=== PATIENT | female | born 1965 | race Caucasian/White ===

== ENCOUNTER → 2018-12-25 | Outpatient (CLI) | payer OTHER ==
[~2018-12-25] MED LIST: B CO1TAB14 PO; MULT-658 PO; Vitamin c PO; garlic PO; magnesium PO; potassium PO
[2018-12-25 15:16] LABS: BASOPHILS # (AUTO) 0.17 x10^3/uL (0-0.1); BASOPHILS % (AUTO) 2 % (0-1); EOSINOPHILS # (AUTO) 0.15 x10^3/uL (0-0.4); EOSINOPHILS % (AUTO) 1 % (1-7); LYMPHOCYTES # (AUTO) 3.43 x10^3/uL (1-3.4); LYMPHOCYTES % (AUTO) 30 % (22-44); MD NO; MEAN CORPUSCULAR HEMOGLOBIN 32.7 pg (27.0-34.8); MEAN CORPUSCULAR HGB CONC 33.5 g/dL (32.4-35.8); MEAN CORPUSCULAR VOLUME 97.7 fL (80-100); MEAN PLATELET VOLUME 8.3 fL (7.4-10.4); MONOCYTES # (AUTO) 0.69 x10^3/uL (0.2-0.8); MONOCYTES % (AUTO) 6 % (2-9); NEUTROPHILS % (AUTO) 61 % (42-75); PLATELET COUNT 326 x10^3/uL (130-400); RED BLOOD COUNT 4.71 x10^6/uL (3.82-5.3); RED CELL DISTRIBUTION WIDTH 13.4 % (9.6-15.2)
[2018-12-25 15:23] LABS: ALANINE AMINOTRANSFERASE 23 U/L (12-78); ALBUMIN 4.2 g/dL (3.4-5.0); ANION GAP 7 mmol/L (5-15); CALCIUM 9.3 mg/dL (8.5-10.1); CHLORIDE 105 mmol/L (98-107); CREATININE 0.78 mg/dL (0.55-1.02)
[2018-12-25 15:25] LABS: ALKALINE PHOSPHATASE 87 U/L (45-117); BILIRUBIN,TOTAL 0.6 mg/dL (0.2-1.0); TOTAL PROTEIN 7.8 g/dL (6.4-8.2)
[2018-12-25 15:34] LABS: PROTHROMBIN TIME 10.5 Seconds (9.6-11.5)
== END | disposition home or self-care (01) ==
LOC: STAR 14:13
PROVIDERS: ATTEND Surgery
DX: Z01.818 Encounter for other preprocedural examination (principal); C43.59 Malignant melanoma of other part of trunk
CPT/HCPCS: 36415; 80053; 85025; 85610; 93005

== ENCOUNTER 2019-01-01 05:47 | Day surgery (SDC) | payer OTHER ==
[~2019-01-01] VITALS: Ht 167.6 cm; Wt 78.9 kg
[2019-01-01] MEDS ORDERED: LACTATED RINGERS 1,000 ML IV SCH (06:37)
[2019-01-01] MEDS ORDERED: EPINEPHRINE 1 MG/ML, 1ML ONE (08:07)
[2019-01-01] MEDS ORDERED: BUPIVACAINE/PF 0.5% ONE (08:07)
[2019-01-01] MEDS ORDERED: MIDAZOLAM 1 MG/ML, 2ML ONE (09:21)
[2019-01-01] MEDS ORDERED: FENTANYL PF 250 MCG/5ML ONE (09:21)
[2019-01-01] MEDS ORDERED: SCOPOLAMINE PATCH, 1.5MG PATCH.TD72 TD ONE ×2 (09:46)
[2019-01-01] MEDS ORDERED: KETAMINE 50 MG/ML, 10ML ONE (10:07)
[2019-01-01] MEDS ORDERED: GLYCOPYRROLATE 0.2MG/1ML, 5ML ONE (10:07)
[2019-01-01] MEDS ORDERED: NEOSTIGMINE 1 MG/ML, 10ML ONE (10:07)
[2019-01-01] MEDS ORDERED: PHENYLEPHRINE 10 MG/ML ONE (10:07)
[2019-01-01] MEDS ORDERED: PROPOFOL 10 MG/ML, 20ML ONE ×2 (10:07→10:36)
[2019-01-01] MEDS ORDERED: ROCURONIUM 10 MG/ML,10ML ONE (10:07)
[2019-01-01] MEDS ORDERED: DEXAMETHASONE 4 MG/ML, 1ML ONE ×3 (10:17→10:36)
[2019-01-01] MEDS ORDERED: MEPERIDINE/PF 25MG/0.5ML IVPush PRN (10:30)
[2019-01-01] MEDS ORDERED: ALBUTEROL/IPRATROPIUM 2.5MG/0.5MG, 3 ML NPPB PRN (10:30)
[2019-01-01] MEDS ORDERED: HYDROmorphone 2 MG/ML, 1ML IVPush PRN (10:30)
[2019-01-01] MEDS ORDERED: HALOPERIDOL 5 MG/ML IV PRN (10:30)
[2019-01-01] MEDS ORDERED: LORazepam 2 MG/ML, 1ML IVPush PRN (10:30)
[2019-01-01] MEDS ORDERED: hydrALAzine 20 MG/ML, 1ML IV PRN (10:30)
[2019-01-01] MEDS ORDERED: ACETAMINOPHEN 325 MG TABLET PO PRN (10:30)
[2019-01-01] MEDS ORDERED: PROMETHAZINE 25 MG/ML, 1ML IV PRN (10:30)
[2019-01-01] MEDS ORDERED: FENTANYL PF 100 MCG/2ML IV PRN (10:30)
[2019-01-01] MEDS ORDERED: OXYcodone 5 MG/5 ML ORAL.SOL UDC PO PRN (10:30)
[2019-01-01] MEDS ORDERED: CEFAZOLIN 1,000 MG ONE (10:36)
[2019-01-01] MEDS ORDERED: ROCURONIUM 10MG/ML,5ML ONE (10:36)
[2019-01-01] MEDS ORDERED: WATER-INJECTION,STERILE 10 ML IV ONE (10:36)
[2019-01-01] MEDS ORDERED: KETOROLAC 30 MG/1 ML ONE (10:36)
[2019-01-01] MEDS ORDERED: LIDOCAINE-MPF 2% ,5ML ONE (10:36)
[2019-01-01] MEDS ORDERED: ONDANSETRON 2MG/ML, 2ML ONE (10:36)
[2019-01-01] MEDS ORDERED: ACETAMINOPHEN 650 MG/20.3 ML UDC ONE (11:49)
[2019-01-01] MEDS ORDERED: OXYcodone 5 MG/5 ML ORAL.SOL UDC ONE (11:49)
== END 2019-01-01 13:15 | disposition home or self-care (01) ==
LOC: OUT 05:47 → EDSTATUS 10:00 → OUT 13:15
PROVIDERS: ATTEND Surgery
DX: C43.59 Malignant melanoma of other part of trunk (principal); R59.1 Generalized enlarged lymph nodes; F17.210 Nicotine dependence, cigarettes, uncomplicated; Z90.710 Acquired absence of both cervix and uterus; Z98.890 Other specified postprocedural states; Z72.89 Other problems related to lifestyle
CPT/HCPCS: 21936; 38525; 78195; 88307; 88333; 88341; 88342; A9541; C9898; J0171; J0690; J1100; J1885; J2250; J2370; J2405; J2704; J2710; J3010; J3490; J7120